=== PATIENT | female | born 1980 | race Caucasian/White ===

== ENCOUNTER 2016-09-05 21:50 | Emergency (ER) | payer OTHER ==
[~2016-09-05] VITALS: Ht 162.6 cm; Wt 167.8 kg
[2016-09-06 00:03] VITALS: BP 134/84
== END 2016-09-06 00:42 | disposition home or self-care (01) ==
LOC: EME 21:50 → RME 21:50
PROC: 2W3QX1Z Immobilization of Right Lower Leg using Splint (ICD-10-PCS; principal; 2016-09-05)
DX: S93.01XA Subluxation of right ankle joint, initial encounter (principal); X50.1XXA Overexertion from prolonged static or awkward postures, initial encounter; Y93.01 Activity, walking, marching and hiking
CPT/HCPCS: 73610; 99281; 99283